=== PATIENT | male | born 1950 | race Caucasian/White ===

== ENCOUNTER → 2018-02-15 18:21 | Outpatient (CLI) | payer MEDICARE ==
[~2018-02-15 18:21] MED LIST: FLOMAX0.4 MG PO; MOBIC7.5 MG PO; PRINIVIL20 MG PO
[2018-03-14 06:26] VITALS: BMI 30.9
== END | disposition home or self-care (01) ==
LOC: D.LABREF 18:21
DX: D72.829 Elevated white blood cell count, unspecified (principal)

== ENCOUNTER → 2018-03-14 05:50 | Day surgery (SDC) | payer MEDICARE ==
[2018-03-13 13:24] LABS: HEMATOCRIT 44.9 % (42.0-54.0); HEMOGLOBIN 15.4 g/dL (13.5-17.5); MCH 32.6 pg (26.0-34.0); MCHC 34.3 g/dL (31.0-37.0); MCV 95.1 fL (80.0-100.0); MEAN PLATELET VOLUME 9.3 fL (7.4-10.4); RBC 4.72 10x6/uL (4.20-6.10); RDW 13.3 % (11.5-14.5); WBC 6.9 10x3/uL (4.8-10.8)
[~2018-03-14] VITALS: Ht 162.6 cm; Wt 81.6 kg
--- NOTE | ~2018-03-14 | OP ---
PATIENT NAME: JANET GUERRERO MEDICAL RECORD: [id number] :52 LOCATION:[facility] ADMISSION DATE: SURGEON: DOM MARTINEZ MD DATE OF OPERATION: 03/14/2018 SURGEON: Dom Martinez MD ANESTHESIA: General anesthesia by Kasie Camacho CRNA. DIAGNOSES: Elevated PSA of 4.0 to 11, urinary retention. PROCEDURE: Transrectal ultrasound and prostate biopsy. FINDINGS: An 80-gram prostate with intraprostatic stones and no hypoechoic areas. SPECIMENS: Prostate biopsy cores. BLOOD LOSS: None. 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 He came from [place] in [place]. He was found by his urologist there to have an elevated PSA of 4.0 on 01/13/2018. He was offered the UroLift procedure for difficulty voiding. In fact, the patient has gone into urinary retention 3 times so far. He also has recurrent urinary tract infections with obstructive BPH. The cystoscopy performed by Dr. Leone showed that there was median lobe hyperplasia. Apparently, he went into urinary retention after cystoscopy and he had a urinary tract infection. He had a PSA drawn at that time for some reason and it was elevated at 11.4. He has difficulty voiding and he is using Flomax at 0.8 mg per day in order to be able to void. The high dose of Flomax makes him lightheaded. There is no family history of prostate cancer, although his father did have BPH. He comes today for prostate biopsy. He is not allergic to any medications. He was given Ancef transonic engineer to the OR. DESCRIPTION OF PROCEDURE: The patient was given general anesthetic. He was then placed into dorsal lithotomy position. The transrectal ultrasound probe was introduced and prostate size measurements were obtained. Prostate size is 80 grams. The hypoechoic lesions were not seen in the prostate. However, he does have a large amount of intraprostatic stones, especially near the apex. Sextant biopsies were then obtained with at least 3 cores from each sextant. Once we obtained all the cores, the procedure was terminated. The patient was awakened and brought back to the recovery room. I will follow up with him on the results of the pathology next week. TRANSINT:[id number] Voice Confirmation ID: [id number] DOCUMENT ID: [id number] OPERATIVE REPORT [id number] JANET GUERRERO ROBERT S MD at 1334 CC: [id number] DICTATION DATE: 03/14/18920 OPTICAL INSTRUMENT ASSEMBLY SUPERVISOR: 03/14/18 1125 [address] [facility] [address] [id number]
[2018-03-14 06:26] VITALS: BP 108/66; Ht 162.6 cm; Wt 81.6 kg
== END | disposition home or self-care (01) ==
LOC: D.OPS 05:50 → D.PAN 09:25 → D.OPS 09:25 → D.PAN 09:55 → D.OPS 09:55
PROVIDERS: Anesthesiology
DX: N41.1 Chronic prostatitis (principal); R33.9 Retention of urine, unspecified; Z01.812 Encounter for preprocedural laboratory examination

== ENCOUNTER 2018-03-28 09:13 | Day surgery (SDC) | payer MEDICARE ==
[~2018-03-28] VITALS: Ht 175.3 cm; Wt 83.9 kg
--- NOTE | ~2018-03-28 | OP ---
PATIENT NAME: JANET GUERRERO MEDICAL RECORD: [id number] :51 LOCATION:[facility] ADMISSION DATE: SURGEON: BULL MARTINEZ MD DATE OF OPERATION: 03/28/2018 SURGEON: Bull Martinez MD. ANESTHESIA: TIVA by Dr. Sunil Batres. DIAGNOSIS: Obstructive benign prostatic hyperplasia with a history of urinary retention. PROCEDURE: Cystoscopy with UroLift implants times 6. FINDINGS: Very large lateral lobe hyperplasia bilaterally. There is also a large median lobe. Single ureteral orifices bilaterally. No bladder tumors were seen. Prostate size was 60 grams on CHRISSY. IPSS score equals 19 and quality of life equals 5. BLOOD LOSS: None. CLINICAL HISTORY: This is a 68-year-old male, who comes from [place] in [place]. He has gone into urinary retention 3 times there. He has a urologist there who is Dr. Leone. Dr. Leone had treated him with a double dose of Flomax. He is marginally voiding, but he has gone into urinary retention even afterwards on the double dose of Flomax. He gets lightheaded from the Flomax also. Dr. Leone had performed cystoscopy on the patient and noted a very large median lobe. At that time, the median lobe was thought to be a contraindication to the UroLift procedure, but today it is no longer contraindication as the indications have changed per the FDA. He now comes to have the UroLift procedure done. He is not allergic to any medications. He was given Ancef best second jobs to the OR. DESCRIPTION OF PROCEDURE: The patient was given IV sedation. He was placed in the dorsal lithotomy position. Lidocaine jelly was inserted into the urethra. The cystoscope was inserted into the urethra. He has single ureteral orifices bilaterally. The prostate is enlarged with large obstructive lateral lobes. The median lobe is also quite tall. We started at the bladder neck level. A 2 cm distal to the bladder neck, we placed one UroLift device in each of the anterior lateral lobes. We then placed 2 more devices at the level of verumontanum. The verumontanum was identified and then going on each side, we placed the UroLift device in the anterior lateral lobes. Even after having placed the 4 devices, we noted that the mid portion of the lateral lobe was still obstructive. We placed 2 more devices in the mid portion of the lateral lobes anteriorly. Looking at the urethral channel, we had a nice anterior channel throughout. The median lobe, once we had placed the bladder neck devices had opened up and was no longer obstructed. The bladder was emptied through the scope and then the scope was removed. I will see the patient in followup in 1 months' time. TRANSINT:[id number] Voice Confirmation ID: [id number] DOCUMENT ID: [id number] OPERATIVE REPORT [id number] JANET GUERRERO, BULL Aj MD at 1333 CC: [id number] DICTATION DATE: 03/28/18 1144 BIODIESEL PRODUCT DEVELOPMENT MANAGER: 03/28/18 1318 [address] [facility] [address] [place] [address]
[2018-03-28 09:36] LABS: HEMATOCRIT 43.8 % (42.0-54.0); MCH 32.5 pg (26.0-34.0); MCHC 34.2 g/dL (31.0-37.0); RBC 4.61 10x6/uL (4.20-6.10); RDW 13.2 % (11.5-14.5); WBC 5.7 10x3/uL (4.8-10.8)
[2018-03-28 10:27] VITALS: BP 131/75; Ht 175.3 cm; Wt 83.9 kg
== END 2018-03-28 13:15 | disposition home or self-care (01) ==
LOC: D.OPS 09:13 → D.PAN 12:30 → D.OPS 13:15 → D.PAN 16:30 → D.OPS 16:30
PROVIDERS: Anesthesiology
DX: N40.1 Benign prostatic hyperplasia with lower urinary tract symptoms (principal); N13.8 Other obstructive and reflux uropathy; R33.8 Other retention of urine; Z01.812 Encounter for preprocedural laboratory examination